=== PATIENT | female | born 1955 | race Caucasian/White ===

== ENCOUNTER 2017-08-03 07:07 | Day surgery (SDC) | payer MEDICAID ==
[2017-08-02 12:55] LABS: BASOPHILS # (AUTO) 0.1 X10'3 (0-0.2); BASOPHILS % (AUTO) 0.8 % (0-1); EOSINOPHILS # (AUTO) 0.2 X10'3 (0-0.9); EOSINOPHILS % (AUTO) 2.9 % (0-6); LYMPHOCYTES # (AUTO) 3.3 X10'3 (1.1-4.8); LYMPHOCYTES % (AUTO) 38.4 % (21-51); MEAN CORPUSCULAR HEMOGLOBIN 24.7 PG (27.0-31.0); MEAN CORPUSCULAR HGB CONC 31.6 % (33.0-36.5); MEAN CORPUSCULAR VOLUME 78.3 FL (78-98); MEAN PLATELET VOLUME 8.2 FL (7.4-10.4); MONOCYTES # (AUTO) 0.7 X10'3 (0-0.9); MONOCYTES % (AUTO) 8.2 % (2-12); NEUTROPHILS # (AUTO) 4.2 X10'3 (1.8-7.7); NEUTROPHILS % (AUTO) 49.7 % (42-75); PRE OP HEMATOCRIT 34.5 % (35.0-45.0); PRE OP PLATELET COUNT 457 X10'3 (140-440); RED CELL DISTRIBUTION WIDTH 17.5 % (11.5-14.5)
[2017-08-02 13:11] LABS: ALBUMIN 3.4 G/DL (3.4-5.0); BLOOD UREA NITROGEN 17 MG/DL (7-18); BUN/CREATININE RATIO 16.8 (6.6-38.0); CALCIUM 9.2 MG/DL (8.5-10.1); CHLORIDE 101 MMOL/L (99-107); CREATININE 1.01 MG/DL (0.40-0.90); PRE OP ANION GAP 9 (8-16); PRE OP GLUCOSE 83 MG/DL (70-104); PRE OP POTASSIUM 4.7 MMOL/L (3.4-5.1); PRE OP SODIUM 139 MMOL/L (135-145); TOTAL CARBON DIOXIDE 28.9 MMOL/L (24-32); eGFR 56 ML/MIN
[2017-08-02 13:14] LABS: PRE OP PROTIME 10.5 SECONDS (9.0-12.0)
[2017-08-02 13:45] LABS: PRE OP HEMOGLOBIN 10.9 g/dL (12.0-16.0)
[~2017-08-03] VITALS: Ht 176.5 cm; Wt 102.5 kg
[2017-08-03] VITALS (26 sets, daily range): BP systolic 99–164; BP diastolic 41–80
[~2017-08-03 07:07] MED LIST: CLON-528 PO; CYCL-1 PO; DOXE50CA4 PO; INSU100V36 SQ; LANTUS SQ; Non-Formulary PO; OMEP-84 PO; TRAZ150T78 PO; VENL150C2 PO; ZIPR80CA2 PO
[2017-08-03] MEDS ORDERED: LORazepam 0.5 MG tablet PO PRN (07:30)
[2017-08-03] MEDS ORDERED: diphenhydrAMINE 25mg capsule PO PRN (07:30)
[2017-08-03] MEDS ORDERED: fentaNYL/PF 50MCG/1 ML 2ML syringe ONE (08:19)
[2017-08-03] MEDS ORDERED: nitroGLYCERIN-Tridil 50MG/D5W 250 ML IV ONE (08:19)
[2017-08-03] MEDS ORDERED: midazolam 2 mg/2 ml injection ONE (08:19)
[2017-08-03] MEDS ORDERED: iohexol 350 MG/ML 50ML vial IV ONE (08:19)
[2017-08-03] MEDS ORDERED: LIDOcaine 1%/PF (10mg/ml) 5ml vial ONE ×2 (08:19→08:51)
[2017-08-03] MEDS ORDERED: heparin 1,000unit/ml 10ml vial 10 ML ONE ×2 (08:19→10:38)
[2017-08-03] MEDS ORDERED: iohexol 350MG/ML 100ml bottle IV ONE ×3 (08:19→09:59)
[2017-08-03] MEDS ORDERED: SIMV40TA4 PO (08:29)
[2017-08-03] MEDS ORDERED: INSU100V12 SQ (08:29)
[2017-08-03] MEDS ORDERED: diphenhydrAMINE 50 mg/ml inj ONE (08:34)
[2017-08-03] MEDS ORDERED: HYDR-565 PO (08:36)
[2017-08-03] MEDS ORDERED: COU3T PO (08:36)
[2017-08-03] MEDS ORDERED: SERT25TA PO (08:37)
[2017-08-03] MEDS ORDERED: BACL10TA PO (08:37)
[2017-08-03] MEDS ORDERED: LAMO200T2 PO (08:37)
[2017-08-03] MEDS ORDERED: ZIPR40CA2 PO (08:37)
[2017-08-03] MEDS ORDERED: heparin 1,000 UNITS/NS 500ml 500 ML ONE (09:35)
[2017-08-03] MEDS ORDERED: clopidogrel 300mg tablet ONE (10:27)
[2017-08-03] MEDS ORDERED: cyclobenzaprine 10mg tablet PO PRN (11:55)
[2017-08-03] MEDS ORDERED: magnesium hydroxide 30ml (MOM) UD suspension PO PRN (11:55)
[2017-08-03] MEDS ORDERED: acetaminophen 325mg tablet PO PRN (11:55)
[2017-08-03] MEDS ORDERED: proCHLORperazine 10 MG/2 ml inj IV PRN (11:55)
[2017-08-03] MEDS: normal saline 1000ml 1,000 ML IV SCH ×2 (11:57→17:30)
[2017-08-03] MEDS ORDERED: morphine sulfate 8 MG/ML SYRINGE IV PRN (12:00)
[2017-08-03] MEDS: aspirin 81mg tab.chew PO SCH (12:08)
[2017-08-03] MEDS: morphine sulfate 8 MG/ML SYRINGE IV PRN ×3 (12:09→21:12)
[2017-08-03 12:15] LABS: ISTAT HGB ART 10.2 g/dl (12.0-16.0); ISTAT Hct ART 30 %PCV (35-48); ISTAT Hct MIX 29 %PCV (35-48); ISTAT O2 SATURATION ARTERIAL 93 % (95-98); ISTAT O2 SATURATION MIX VENOUS 64 % (60-80); ISTAT SOURCE ART; ISTAT SOURCE MIX
[2017-08-03] MEDS: HYDROcodone/acetaminophen 10/325mg tab PO PRN (15:15)
[2017-08-03] MEDS ORDERED: baclofen 10mg tablet PO PRN (18:10)
[2017-08-03] MEDS: famotidine 20mg tablet PO SCH (20:22)
[2017-08-03] MEDS: docusate sod 100mg capsule PO SCH (20:22)
[2017-08-03] MEDS ORDERED: atorvastatin 20mg tablet PO SCH (21:00)
[2017-08-03] MEDS ORDERED: lamoTRIgine 100mg tablet PO SCH (21:00)
[2017-08-03] MEDS ORDERED: sertraline 50mg tablet PO SCH (21:00)
[2017-08-03] MEDS ORDERED: ziprasidone 20mg capsule PO SCH (21:00)
[2017-08-03] MEDS ORDERED: traZODone 150mg tablet PO SCH (21:00)
[2017-08-03] MEDS ORDERED: ATOR-2 PO (21:19)
[2017-08-03] MEDS ORDERED: HYDROcodone/acetaminophen 10/325mg tab PO PRN (21:20)
[2017-08-03] MEDS ORDERED: baclofen 10mg tablet PO SCH (21:20)
[2017-08-03 22:00] LABS: PROTHROMBIN TIME 10.5 SECONDS (9.0-12.0)
[2017-08-04] MEDS: morphine sulfate 8 MG/ML SYRINGE IV PRN (01:39)
[2017-08-04 02:00] VITALS: BP 107/69
[2017-08-04] MEDS: HYDROcodone/acetaminophen 10/325mg tab PO PRN (05:36)
[2017-08-04 06:00] VITALS: BP 111/57
[2017-08-04 06:24] LABS: PROTHROMBIN TIME 10.8 SECONDS (9.0-12.0)
[2017-08-04] MEDS: docusate sod 100mg capsule PO SCH (07:44)
[2017-08-04] MEDS: famotidine 20mg tablet PO SCH (07:44)
[2017-08-04] MEDS: aspirin 81mg tab.chew PO SCH (07:44)
[2017-08-04] MEDS ORDERED: clopidogrel 75mg tablet PO SCH (08:00)
[2017-08-04] MEDS ORDERED: sertraline 50mg tablet PO SCH (08:00)
[2017-08-04] MEDS ORDERED: ziprasidone 20mg capsule PO SCH (08:00)
[2017-08-04] MEDS ORDERED: ASPI-1265 PO (08:14)
[2017-08-04] MEDS ORDERED: CLOP75TA35 PO (08:14)
[2017-08-04 11:30] VITALS: BP 119/56
[2017-08-04] MEDS ORDERED: atorvastatin 20mg tablet PO SCH (21:00)
[2017-08-04] MEDS ORDERED: Insulin Detemir pen SQ SCH (21:00)
[2017-08-04] MEDS ORDERED: warfarin 3mg tablet PO SCH (21:00)
[2017-08-04] MEDS ORDERED: traZODone 150mg tablet PO SCH (21:00)
[2017-08-04] MEDS ORDERED: WARFARIN 5 MG PO SCH (21:00)
== END 2017-08-04 12:15 | disposition home or self-care (01) ==
LOC: SSTAY O 07:07 → PCU 3S 17:41 → SSTAY O 08-04 12:15
PROVIDERS: ATTEND Internal Medicine Cardiovascular Disease
DX: I25.10 Atherosclerotic heart disease of native coronary artery without angina pectoris (principal); E11.9 Type 2 diabetes mellitus without complications; E66.9 Obesity, unspecified; E78.5 Hyperlipidemia, unspecified; F32.9 Major depressive disorder, single episode, unspecified; E03.9 Hypothyroidism, unspecified; I10 Essential (primary) hypertension; F17.210 Nicotine dependence, cigarettes, uncomplicated; J44.9 Chronic obstructive pulmonary disease, unspecified; I25.82 Chronic total occlusion of coronary artery; Z78.0 Asymptomatic menopausal state; Z79.01 Long term (current) use of anticoagulants; Z79.82 Long term (current) use of aspirin; Z86.711 Personal history of pulmonary embolism; Z86.718 Personal history of other venous thrombosis and embolism; Z95.5 Presence of coronary angioplasty implant and graft; Z90.710 Acquired absence of both cervix and uterus; Z68.32 Body mass index [BMI] 32.0-32.9, adult; Z88.6 Allergy status to analgesic agent; Z98.890 Other specified postprocedural states; Z90.49 Acquired absence of other specified parts of digestive tract; Z79.4 Long term (current) use of insulin
CPT/HCPCS: 36415; 80048; 82803; 82948; 85014; 85025; 85347; 85610; 85730; 93005; 93460; 99152; 99153; A6257; A6449; C1725; C1769; C1874; C9600; J1200; J1644; J2001; J2250; J2270; J3010; J3490; J7030; Q9967; 93458; A4620

== ENCOUNTER 2017-09-07 10:06 | Day surgery (SDC) | payer MEDICAID ==
[2017-09-06 12:48] LABS: BASOPHILS # (AUTO) 0.1 X10'3 (0-0.2); BASOPHILS % (AUTO) 0.6 % (0-1); EOSINOPHILS # (AUTO) 0.3 X10'3 (0-0.9); EOSINOPHILS % (AUTO) 3.5 % (0-6); HEMATOCRIT 34.1 % (35.0-45.0); HEMOGLOBIN 11.1 g/dl (12.0-16.0); MEAN CORPUSCULAR HEMOGLOBIN 24.5 PG (27.0-31.0); MEAN CORPUSCULAR HGB CONC 32.5 % (33.0-36.5); MEAN CORPUSCULAR VOLUME 75.2 FL (78-98); MEAN PLATELET VOLUME 8.6 FL (7.4-10.4); MONOCYTES # (AUTO) 0.8 X10'3 (0-0.9); MONOCYTES % (AUTO) 8.4 % (2-12); NEUTROPHILS # (AUTO) 5.1 X10'3 (1.8-7.7); NEUTROPHILS % (AUTO) 55.5 % (42-75); PLATELET COUNT 543 X10'3 (140-440); RED BLOOD COUNT 4.54 X10'6 (4.20-5.60); RED CELL DISTRIBUTION WIDTH 17.6 % (11.5-14.5); WHITE BLOOD COUNT 9.3 X10'3 (4.5-11.0)
[2017-09-06 13:05] LABS: ALBUMIN 3.5 G/DL (3.4-5.0); ANION GAP 7 (8-16); BLOOD UREA NITROGEN 20 MG/DL (7-18); CALCIUM 8.9 MG/DL (8.5-10.1); CHLORIDE 103 MMOL/L (99-107); GLUCOSE 114 MG/DL (70-104); PARTIAL THROMBOPLASTIN TIME 23 SECONDS (22-32); PROTHROMBIN TIME 10.3 SECONDS (9.0-12.0); SODIUM 139 MMOL/L (135-145); TOTAL CARBON DIOXIDE 28.9 MMOL/L (24-32); eGFR 56 ML/MIN
[2017-09-06 13:11] LABS: POTASSIUM 4.1 MMOL/L (3.5-5.1)
[2017-09-07] VITALS (12 sets, daily range): BP systolic 100–178; BP diastolic 51–84
[~2017-09-07] VITALS: Ht 176.5 cm; Wt 100.7 kg
[~2017-09-07 10:06] MED LIST changes: +ASPI-1265 PO; +ATOR-2 PO; +BACL10TA PO; -CLON-528 PO; +CLOP75TA35 PO; +COU3T PO; -CYCL-1 PO; -DOXE50CA4 PO; +HYDR-565 PO; +INSU100V12 SQ; +LAMO200T2 PO; -LANTUS SQ; -Non-Formulary PO; -OMEP-84 PO; +SERT25TA PO; -VENL150C2 PO; +ZIPR40CA2 PO
[2017-09-07] MEDS ORDERED: normal saline 1000ml 1,000 ML IV SCH (10:25)
[2017-09-07] MEDS ORDERED: LORazepam 0.5 MG tablet PO PRN (10:25)
[2017-09-07] MEDS ORDERED: diphenhydrAMINE 25mg capsule PO PRN (10:25)
[2017-09-07] MEDS ORDERED: LIDOcaine 1% (10mg/ml) 2ml vial ONE (10:35)
[2017-09-07] MEDS ORDERED: CLOP75TA15 PO (10:38)
[2017-09-07] MEDS ORDERED: ASPI81TA52 PO (10:39)
[2017-09-07] MEDS ORDERED: SIMV20TA5 PO (10:46)
[2017-09-07] MEDS ORDERED: DOXE50CA4 PO (10:52)
[2017-09-07] MEDS ORDERED: BUSP10TA11 PO (10:52)
[2017-09-07] MEDS ORDERED: PANT-47 PO (10:57)
[2017-09-07] MEDS ORDERED: VENL150T3 PO (10:57)
[2017-09-07] MEDS ORDERED: FENO160T30 PO (10:57)
[2017-09-07] MEDS ORDERED: iohexol 350MG/ML 100ml bottle IV ONE ×2 (13:33→14:46)
[2017-09-07] MEDS ORDERED: heparin 1,000unit/ml 10ml vial 10 ML ONE (13:33)
[2017-09-07] MEDS ORDERED: iohexol 350 MG/ML 50ML vial IV ONE (13:33)
[2017-09-07] MEDS ORDERED: LIDOcaine 1%/PF (10mg/ml) 5ml vial ONE ×2 (13:33→14:27)
[2017-09-07] MEDS ORDERED: midazolam 2 mg/2 ml injection ONE ×2 (13:33→14:31)
[2017-09-07] MEDS ORDERED: nitroGLYCERIN-Tridil 50MG/D5W 250 ML IV ONE (13:33)
[2017-09-07] MEDS ORDERED: fentaNYL/PF 50MCG/1 ML 2ML syringe ONE (13:33)
[2017-09-07] MEDS ORDERED: HYDROcodone/acetaminophen 10/325mg tab PO PRN (18:15)
== END 2017-09-07 20:15 | disposition home or self-care (01) ==
LOC: SSTAY O 10:06
PROVIDERS: ATTEND Internal Medicine Cardiovascular Disease
DX: I25.110 Atherosclerotic heart disease of native coronary artery with unstable angina pectoris (principal); E78.5 Hyperlipidemia, unspecified; I10 Essential (primary) hypertension; J44.9 Chronic obstructive pulmonary disease, unspecified; E11.9 Type 2 diabetes mellitus without complications; Z78.0 Asymptomatic menopausal state; Z87.891 Personal history of nicotine dependence; Z95.5 Presence of coronary angioplasty implant and graft; Z79.82 Long term (current) use of aspirin; Z79.4 Long term (current) use of insulin; Z88.6 Allergy status to analgesic agent; Z79.01 Long term (current) use of anticoagulants; Z90.710 Acquired absence of both cervix and uterus; Z98.890 Other specified postprocedural states
CPT/HCPCS: 36415; 80048; 82948; 85025; 85610; 85730; 93005; 93458; 99152; 99153; A6257; C1725; C1769; J1644; J2001; J2250; J3010; J3490; J7030; Q0163; Q9967; A4620

== ENCOUNTER 2018-01-11 12:58 | Inpatient (IN) | payer MEDICAID ==
[~2018-01-11] VITALS: Ht 176.5 cm; Wt 98.0 kg
[~2018-01-11 12:58] MED LIST changes: -ASPI-1265 PO; +ASPI81TA52 PO; -ATOR-2 PO; +BUSP10TA11 PO; +CLOP75TA15 PO; -CLOP75TA35 PO; -COU3T PO; +DOXE50CA4 PO; +FENO160T30 PO; +PANT-47 PO; -SERT25TA PO; +SIMV20TA5 PO; +VENL150T3 PO; -ZIPR40CA2 PO
[2018-01-11] MEDS ORDERED: levoFLOXACIN-Levaquin 750MG/D5 150 ML IV STA (13:26)
[2018-01-11] MEDS ORDERED: acetaminophen 325mg tablet PO ONE (13:30)
[2018-01-11] MEDS ORDERED: normal saline 1000ML IV soln IV ONE (13:30)
[2018-01-11 13:38] LABS: BASOPHILS % (AUTO) 0.1 % (0-1); EOSINOPHILS # (AUTO) 0.7 X10'3 (0-0.9); EOSINOPHILS % (AUTO) 3.5 % (0-6); HEMATOCRIT 24.2 % (35.0-45.0); HEMOGLOBIN 7.7 g/dl (12.0-16.0); LYMPHOCYTES # (AUTO) 2.5 X10'3 (1.1-4.8); LYMPHOCYTES % (AUTO) 11.9 % (21-51); MEAN CORPUSCULAR HEMOGLOBIN 21.8 PG (27.0-31.0); MEAN CORPUSCULAR HGB CONC 31.9 % (33.0-36.5); MEAN CORPUSCULAR VOLUME 68.2 FL (78-98); MEAN PLATELET VOLUME 7.7 FL (7.4-10.4); MONOCYTES # (AUTO) 1.9 X10'3 (0-0.9); NEUTROPHILS % (AUTO) 75.5 % (42-75); PLATELET COUNT 891 X10'3 (140-440); RED BLOOD COUNT 3.55 X10'6 (4.20-5.60); RED CELL DISTRIBUTION WIDTH 21.3 % (11.5-14.5); WHITE BLOOD COUNT 21.1 X10'3 (4.5-11.0)
[2018-01-11 13:49] LABS: INR 1.1 INR; PARTIAL THROMBOPLASTIN TIME 31 SECONDS (22-32); PROTHROMBIN TIME 11.7 SECONDS (9.0-12.0)
[2018-01-11 13:55] LABS: ALANINE AMINOTRANSFERASE 17 U/L (12-78); ALBUMIN 2.1 G/DL (3.4-5.0); ALBUMIN/GLOBULIN RATIO 0.4 (1.1-1.5); ALKALINE PHOSPHATASE 36 IU/L (46-116); ANION GAP 12 (8-16); ASPARTATE AMINO TRANSFERASE 30 U/L (10-37); BILIRUBIN,TOTAL 0.2 MG/DL (0.1-1.0); BLOOD UREA NITROGEN 30 MG/DL (7-18); BUN/CREATININE RATIO 25.2 (6.6-38.0); CALCIUM 9.1 MG/DL (8.5-10.1); CHLORIDE 102 MMOL/L (99-107); CREATININE 1.19 MG/DL (0.40-0.90); GLUCOSE 121 MG/DL (70-104); SODIUM 138 MMOL/L (135-145); TOTAL CARBON DIOXIDE 24.1 MMOL/L (24-32); TOTAL PROTEIN 7.8 G/DL (6.4-8.2); eGFR 46 ML/MIN
[2018-01-11 15:09] LABS: ANISOCYTOSIS 3+; PLATELET ESTIMATE INCREASED; POIKILOCYTOSIS 2+; TOTAL CELLS COUNTED 100
[2018-01-11 15:10] LABS: SMUDGE CELLS FEW
[2018-01-11 15:14] LABS: POLYCHROMASIA FEW
[2018-01-11 15:16] LABS: ELLIPTOCYTES FEW; HYPOCHROMASIA 1+; SCHISTOCYTES FEW; TARGET CELLS 3+
[2018-01-11 15:19] LABS: LARGE PLATELETS FEW; TOXIC GRANULATION 2+
[2018-01-11 16:14] LABS: CLARITY,URINE SLIGHTLY CLOUDY (Clear); COLOR,URINE YELLOW (Yellow); GLUCOSE, URINE NEGATIVE (Neg); KETONES,URINE NEGATIVE (Neg); LEUKOCYTE ESTERASE ,URINE NEGATIVE (Neg); NITRITES, URINE POSITIVE (Neg); OCCULT BLOOD,URINE NEGATIVE (Neg); PROTEIN,URINE NEGATIVE (Neg)
[2018-01-11 16:15] LABS: UA COLLECTION TYPE CLN CATCH MIDSTREAM
[2018-01-11 16:19] LABS: BACTERIA,URINE 2+ /HPF (Neg); HYALINE CASTS 0-3 /LPF (NEGATIVE); SQUAMOUS EPITHELIAL CELL,UR MANY /LPF (FEW)
[2018-01-11 16:20] LABS: RBC,URINE 0-2 /HPF (0-2); WBC,URINE 0-4 /HPF (0-4)
[2018-01-11] MEDS ORDERED: mag hydrox/Alum hydrox/simeth 30ml oral suspension PO PRN (17:30)
[2018-01-11] MEDS ORDERED: acetaminophen 325mg tablet PO PRN ×2 (17:30)
[2018-01-11] MEDS ORDERED: ipratropium/albuterol 3ml nebule NEB PRN (17:30)
[2018-01-11] MEDS ORDERED: magnesium hydroxide 30ml (MOM) UD suspension PO PRN (17:30)
[2018-01-11] MEDS ORDERED: ondansetron/PF 4mg/2ml inj IV PRN (17:30)
[2018-01-11] MEDS ORDERED: acetaminophen 650mg rectal suppository RC PRN (17:30)
[2018-01-11] MEDS ORDERED: HYDROcodone/acetaminophen 5mg/325mg tablet PO PRN (17:30)
[2018-01-11] MEDS ORDERED: insulin regular, human vial - multi-dose SQ SCH (18:15)
[2018-01-11] MEDS ORDERED: dextrose ORAL solution 15 GM/59 ML bottle PO PRN ×2 (18:15)
[2018-01-11] MEDS ORDERED: glucagon, human recombinant 1mg kit SUBCUT PRN (18:15)
[2018-01-11] MEDS ORDERED: dextrose 50%-water 50ml dispensing syringe IV PRN ×2 (18:15)
[2018-01-11] MEDS ORDERED: MESSAGE TO PHARMACY PO ONE (18:15)
[2018-01-11] MEDS: HYDROcodone/acetaminophen 10/325mg tab PO PRN ×2 (18:33→23:55)
[2018-01-11 18:54] LABS: HEMOGLOBIN A1C 7.8 % (4.5-6.2)
[2018-01-11] MEDS: baclofen 10mg tablet PO PRN (19:00)
[2018-01-11] MEDS: sodium chloride 0.45% 1,000 ML IV SCH (19:10)
[2018-01-11] MEDS: ziprasidone 20mg capsule PO SCH (20:43)
[2018-01-11] MEDS: busPIRone 5mg tablet PO SCH (20:43)
[2018-01-11] MEDS: lamoTRIgine 100mg tablet PO SCH (20:43)
[2018-01-11] MEDS: rivaroxaban 15mg tablet PO SCH (20:43)
[2018-01-11] MEDS: pantoprazole 40mg Tablet.DR PO SCH (20:43)
[2018-01-11] MEDS: doxepin 25mg capsule PO SCH (21:00)
[2018-01-11 22:15] VITALS: BP 126/55
[2018-01-11] MEDS: traZODone 150mg tablet PO SCH (22:28)
[2018-01-11] MEDS: insulin glargine (Lantus) pen - multi-dose SQ SCH (22:33)
[2018-01-11] MEDS: methylPREDNISolone sod succ 125mg/2ml vial IV SCH (23:56)
[2018-01-12 05:29] LABS: HEMATOCRIT 22.5 % (35.0-45.0); HEMOGLOBIN 7.1 g/dl (12.0-16.0); MEAN CORPUSCULAR HEMOGLOBIN 21.7 PG (27.0-31.0); MEAN CORPUSCULAR HGB CONC 31.6 % (33.0-36.5); MEAN CORPUSCULAR VOLUME 68.7 FL (78-98); MEAN PLATELET VOLUME 8.1 FL (7.4-10.4); PLATELET COUNT 794 X10'3 (140-440); RED BLOOD COUNT 3.28 X10'6 (4.20-5.60); RED CELL DISTRIBUTION WIDTH 21.2 % (11.5-14.5); WHITE BLOOD COUNT 15.9 X10'3 (4.5-11.0)
[2018-01-12 05:41] LABS: ALBUMIN 1.8 G/DL (3.4-5.0); ANION GAP 8 (8-16); BLOOD UREA NITROGEN 22 MG/DL (7-18); BUN/CREATININE RATIO 21.8 (6.6-38.0); CHLORIDE 103 MMOL/L (99-107); CREATININE 1.01 MG/DL (0.40-0.90); GLUCOSE 256 MG/DL (70-104); POTASSIUM 4.8 MMOL/L (3.5-5.1); SODIUM 135 MMOL/L (135-145); TOTAL CARBON DIOXIDE 23.8 MMOL/L (24-32); TROPONIN I < 0.04 NG/ML (0.0-0.05); eGFR 55 ML/MIN
[2018-01-12] MEDS: sodium chloride 0.45% 1,000 ML IV SCH ×3 (05:46→23:23)
[2018-01-12 06:25] LABS: BASOPHILS % (MANUAL) 1 % (0-1); LYMPHOCYTES % (MANUAL) 5 % (21-51); NEUTROPHILS % (MANUAL) 93 % (42-75); TOTAL CELLS COUNTED 100
[2018-01-12 06:26] LABS: ANISOCYTOSIS 3+; HYPOCHROMASIA 1+; MICROCYTOSIS 2+; PLATELET ESTIMATE INCREASED; TARGET CELLS 2+
[2018-01-12 06:27] LABS: ELLIPTOCYTES 1+; POIKILOCYTOSIS 2+; TOXIC GRANULATION 2+
[2018-01-12 07:30] VITALS: BP 113/47
[2018-01-12] MEDS ORDERED: levoFLOXACIN-Levaquin 750MG/D5 150 ML IV SCH (08:00)
[2018-01-12] MEDS ORDERED: insulin glargine (Lantus) pen - multi-dose SQ SCH (08:00)
[2018-01-12 09:57] LABS: RED BLOOD COUNT 3.32 X10'6 (4.20-5.60); RETICULOCYTE % (AUTO) 2.4 % (0.5-1.5)
[2018-01-12] MEDS: methylPREDNISolone sod succ 125mg/2ml vial IV SCH ×3 (10:07→23:31)
[2018-01-12] MEDS: pantoprazole 40mg Tablet.DR PO SCH ×2 (10:07→19:21)
[2018-01-12] MEDS: busPIRone 5mg tablet PO SCH ×2 (10:08→19:20)
[2018-01-12] MEDS: lamoTRIgine 100mg tablet PO SCH ×2 (10:08→19:18)
[2018-01-12] MEDS: ziprasidone 20mg capsule PO SCH ×2 (10:08→19:16)
[2018-01-12] MEDS: clopidogrel 75mg tablet PO SCH (10:08)
[2018-01-12] MEDS: aspirin 81mg tablet.DR PO SCH (10:08)
[2018-01-12] MEDS: venlafaxine XR 75mg capsule (Q24H) PO SCH (10:09)
[2018-01-12] MEDS: rivaroxaban 15mg tablet PO SCH ×2 (10:09→19:20)
[2018-01-12 10:17] LABS: % IRON SATURATION 3 % (11-46); IRON 10 UG/DL (49-151); TOTAL IRON BINDING CAPACITY 293 UG/DL (259-388)
[2018-01-12] MEDS: HYDROcodone/acetaminophen 10/325mg tab PO PRN ×3 (10:24→19:16)
[2018-01-12] MEDS: baclofen 10mg tablet PO PRN ×2 (10:24→19:22)
[2018-01-12 10:58] VITALS: BP 129/52
[2018-01-12] MEDS: insulin Lispro (HumaLOG) vial - multi-dose SQ SCH ×3 (13:17→21:19)
[2018-01-12] MEDS: CefTRIAXone/D5W-Rocephin 1gm 50 ML IV SCH (16:59)
[2018-01-12] MEDS: azithromycin/NS 500mg/250ml 250 ML IV SCH (17:56)
[2018-01-12] MEDS: lactobacillus rhamnosus 10,000 MMU CELLS/CAPSULE PO SCH (19:16)
[2018-01-12 20:00] VITALS: BP 130/53
[2018-01-12] MEDS: doxepin 25mg capsule PO SCH (20:50)
[2018-01-12] MEDS: traZODone 150mg tablet PO SCH (20:52)
[2018-01-12] MEDS: insulin glargine (Lantus) pen - multi-dose SQ SCH (21:18)
[2018-01-13] VITALS (13 sets, daily range): BP systolic 108–144; BP diastolic 49–78
[2018-01-13] MEDS: HYDROcodone/acetaminophen 10/325mg tab PO PRN ×3 (01:30→20:31)
[2018-01-13 05:35] LABS: ALBUMIN 1.8 G/DL (3.4-5.0); ANION GAP 7 (8-16); BLOOD UREA NITROGEN 23 MG/DL (7-18); BUN/CREATININE RATIO 23.5 (6.6-38.0); CHLORIDE 102 MMOL/L (99-107); CREATININE 0.98 MG/DL (0.40-0.90); GLUCOSE 310 MG/DL (70-104); POTASSIUM 4.8 MMOL/L (3.5-5.1); SODIUM 136 MMOL/L (135-145); TOTAL CARBON DIOXIDE 26.9 MMOL/L (24-32); eGFR 57 ML/MIN
[2018-01-13 05:42] LABS: BASOPHILS % (AUTO) 0 % (0-1); EOSINOPHILS % (AUTO) 0.2 % (0-6); LYMPHOCYTES # (AUTO) 1.1 X10'3 (1.1-4.8); LYMPHOCYTES % (AUTO) 6.6 % (21-51); MEAN CORPUSCULAR HEMOGLOBIN 21.5 PG (27.0-31.0); MEAN CORPUSCULAR HGB CONC 31.5 % (33.0-36.5); MEAN CORPUSCULAR VOLUME 68.4 FL (78-98); MONOCYTES # (AUTO) 0.4 X10'3 (0-0.9); MONOCYTES % (AUTO) 2.2 % (2-12); NEUTROPHILS # (AUTO) 14.8 X10'3 (1.8-7.7); PLATELET COUNT 840 X10'3 (140-440); RED BLOOD COUNT 3.11 X10'6 (4.20-5.60); RED CELL DISTRIBUTION WIDTH 21.7 % (11.5-14.5); WHITE BLOOD COUNT 16.3 X10'3 (4.5-11.0)
[2018-01-13 05:45] LABS: HEMATOCRIT 21.3 % (35.0-45.0); HEMOGLOBIN 6.7 g/dl (12.0-16.0)
[2018-01-13 07:39] LABS: ANISOCYTOSIS 3+; HYPOCHROMASIA 1+; LARGE PLATELETS FEW; MICROCYTOSIS 2+; PLATELET ESTIMATE INCREASED; POIKILOCYTOSIS FEW; POLYCHROMASIA 1+
[2018-01-13 07:40] LABS: TARGET CELLS 1+
[2018-01-13] MEDS: clopidogrel 75mg tablet PO SCH ×2 (08:00→10:34)
[2018-01-13] MEDS ORDERED: insulin glargine (Lantus) pen - multi-dose SQ SCH (08:00)
[2018-01-13] MEDS: rivaroxaban 15mg tablet PO SCH ×2 (08:00→10:32)
[2018-01-13] MEDS: baclofen 10mg tablet PO PRN ×2 (08:39→20:31)
[2018-01-13] MEDS: insulin Lispro (HumaLOG) vial - multi-dose SQ SCH ×2 (10:29→14:09)
[2018-01-13] MEDS: methylPREDNISolone sod succ 125mg/2ml vial IV SCH ×2 (10:32→19:55)
[2018-01-13] MEDS: CefTRIAXone/D5W-Rocephin 1gm 50 ML IV SCH (10:32)
[2018-01-13] MEDS: pantoprazole 40mg Tablet.DR PO SCH ×2 (10:33→19:06)
[2018-01-13] MEDS: aspirin 81mg tablet.DR PO SCH (10:34)
[2018-01-13] MEDS: ziprasidone 20mg capsule PO SCH ×2 (10:34→19:06)
[2018-01-13] MEDS: venlafaxine XR 75mg capsule (Q24H) PO SCH (10:36)
[2018-01-13] MEDS: lactobacillus rhamnosus 10,000 MMU CELLS/CAPSULE PO SCH ×2 (10:37→19:06)
[2018-01-13] MEDS: busPIRone 5mg tablet PO SCH ×2 (10:38→19:06)
[2018-01-13] MEDS: lamoTRIgine 100mg tablet PO SCH ×2 (10:38→19:06)
[2018-01-13] MEDS ORDERED: TEMA30CA PO (10:49)
[2018-01-13] MEDS ORDERED: ISOS60TA4 PO (10:52)
[2018-01-13] MEDS: piperacillin/tazo 3.375gm/50ml 50 ML IV SCH ×4 (11:05→19:56)
[2018-01-13] MEDS: vancomycin/NS 1 GM ADD-VANTAGE 250 ML IV SCH ×2 (11:10→14:37)
[2018-01-13 12:18] LABS: IRON 19 UG/DL (49-151); TOTAL IRON BINDING CAPACITY 312 UG/DL (259-388)
[2018-01-13 12:19] LABS: % IRON SATURATION 6 % (11-46)
[2018-01-13 12:51] LABS: FERRITIN 79 NG/ML (8-252)
[2018-01-13] MEDS: azithromycin/NS 500mg/250ml 250 ML IV SCH (12:53)
[2018-01-13 13:20] LABS: OCCULT BLOOD STOOL NEGATIVE (Neg)
[2018-01-13] MEDS: traZODone 150mg tablet PO SCH (20:31)
[2018-01-13] MEDS: doxepin 25mg capsule PO SCH (20:31)
[2018-01-13] MEDS: insulin glargine (Lantus) pen - multi-dose SQ SCH (21:07)
[2018-01-14 00:12] VITALS: BP 152/78
[2018-01-14 00:49] VITALS: BP 139/76
[2018-01-14] MEDS: vancomycin inj 1,250 MG in normal saline 250ml IV soln 250 ML IV SCH ×2 (00:57→12:30)
[2018-01-14] MEDS: piperacillin/tazo 3.375gm/50ml 50 ML IV SCH ×4 (03:00→19:08)
[2018-01-14 04:45] VITALS: BP 229/113
[2018-01-14] MEDS: HYDROcodone/acetaminophen 10/325mg tab PO PRN ×3 (04:51→19:09)
[2018-01-14] MEDS: baclofen 10mg tablet PO PRN ×3 (04:51→19:10)
[2018-01-14 05:49] LABS: BASOPHILS % (AUTO) 0 % (0-1); EOSINOPHILS # (AUTO) 0.2 X10'3 (0-0.9); EOSINOPHILS % (AUTO) 1.1 % (0-6); HEMATOCRIT 28.6 % (35.0-45.0); HEMOGLOBIN 9.3 g/dl (12.0-16.0); LYMPHOCYTES % (AUTO) 10.5 % (21-51); MEAN CORPUSCULAR HEMOGLOBIN 23.6 PG (27.0-31.0); MEAN CORPUSCULAR HGB CONC 32.4 % (33.0-36.5); MEAN CORPUSCULAR VOLUME 72.8 FL (78-98); MEAN PLATELET VOLUME 8.3 FL (7.4-10.4); MONOCYTES # (AUTO) 0.8 X10'3 (0-0.9); MONOCYTES % (AUTO) 4.3 % (2-12); NEUTROPHILS # (AUTO) 15.6 X10'3 (1.8-7.7); NEUTROPHILS % (AUTO) 84.1 % (42-75); PLATELET COUNT 855 X10'3 (140-440); RED BLOOD COUNT 3.93 X10'6 (4.20-5.60); RED CELL DISTRIBUTION WIDTH 23.2 % (11.5-14.5); WHITE BLOOD COUNT 18.5 X10'3 (4.5-11.0)
[2018-01-14 07:16] LABS: ANION GAP 9 (8-16); BLOOD UREA NITROGEN 21 MG/DL (7-18); BUN/CREATININE RATIO 23.1 (6.6-38.0); CALCIUM 8.4 MG/DL (8.5-10.1); CHLORIDE 106 MMOL/L (99-107); CREATININE 0.91 MG/DL (0.40-0.90); GLUCOSE 238 MG/DL (70-104); POTASSIUM 4.2 MMOL/L (3.5-5.1); SODIUM 140 MMOL/L (135-145); TOTAL CARBON DIOXIDE 24.8 MMOL/L (24-32); eGFR 62 ML/MIN
[2018-01-14 07:31] VITALS: BP 145/75
[2018-01-14] MEDS: azithromycin/NS 500mg/250ml 250 ML IV SCH (07:45)
[2018-01-14] MEDS: insulin Lispro (HumaLOG) vial - multi-dose SQ SCH ×4 (08:55→21:40)
[2018-01-14] MEDS: ziprasidone 20mg capsule PO SCH ×2 (08:58→19:09)
[2018-01-14] MEDS: venlafaxine XR 75mg capsule (Q24H) PO SCH (08:59)
[2018-01-14] MEDS: lactobacillus rhamnosus 10,000 MMU CELLS/CAPSULE PO SCH ×2 (09:00→19:08)
[2018-01-14] MEDS: lamoTRIgine 100mg tablet PO SCH ×2 (09:00→19:09)
[2018-01-14] MEDS: pantoprazole 40mg Tablet.DR PO SCH ×2 (09:01→19:08)
[2018-01-14] MEDS: aspirin 81mg tablet.DR PO SCH (09:01)
[2018-01-14] MEDS: busPIRone 5mg tablet PO SCH ×2 (09:01→19:08)
[2018-01-14] MEDS: methylPREDNISolone sod succ 125mg/2ml vial IV SCH ×2 (09:03→19:10)
[2018-01-14 11:00] VITALS: BP 147/80
[2018-01-14] MEDS: ascorbic acid 500mg tablet PO SCH (17:42)
[2018-01-14 18:00] VITALS: BP 154/63
[2018-01-14] MEDS: ferrous sulfate 325mg tablet PO SCH (19:18)
[2018-01-14] MEDS: insulin glargine (Lantus) pen - multi-dose SQ SCH (21:41)
[2018-01-14] MEDS: traZODone 150mg tablet PO SCH (21:45)
[2018-01-14] MEDS: doxepin 25mg capsule PO SCH (21:45)
[2018-01-15 00:24] VITALS: BP 139/57
[2018-01-15] MEDS: piperacillin/tazo 3.375gm/50ml 50 ML IV SCH ×2 (01:47→08:37)
[2018-01-15] MEDS: vancomycin inj 1,250 MG in normal saline 250ml IV soln 250 ML IV SCH (02:28)
[2018-01-15] MEDS: baclofen 10mg tablet PO PRN (03:04)
[2018-01-15] MEDS: HYDROcodone/acetaminophen 10/325mg tab PO PRN ×2 (03:04→11:02)
[2018-01-15 04:38] LABS: BASOPHILS % (AUTO) 0.3 % (0-1); EOSINOPHILS # (AUTO) 0.2 X10'3 (0-0.9); EOSINOPHILS % (AUTO) 1.2 % (0-6); HEMOGLOBIN 9.7 g/dl (12.0-16.0); LYMPHOCYTES # (AUTO) 1.7 X10'3 (1.1-4.8); LYMPHOCYTES % (AUTO) 12.4 % (21-51); MEAN CORPUSCULAR HEMOGLOBIN 23.3 PG (27.0-31.0); MEAN CORPUSCULAR HGB CONC 32.4 % (33.0-36.5); MEAN CORPUSCULAR VOLUME 71.9 FL (78-98); MEAN PLATELET VOLUME 7.8 FL (7.4-10.4); MONOCYTES # (AUTO) 0.7 X10'3 (0-0.9); MONOCYTES % (AUTO) 5.1 % (2-12); PLATELET COUNT 857 X10'3 (140-440); RED BLOOD COUNT 4.18 X10'6 (4.20-5.60); RED CELL DISTRIBUTION WIDTH 22.9 % (11.5-14.5); WHITE BLOOD COUNT 13.6 X10'3 (4.5-11.0)
[2018-01-15 04:49] LABS: ANION GAP 6 (8-16); BLOOD UREA NITROGEN 20 MG/DL (7-18); BUN/CREATININE RATIO 21.5 (6.6-38.0); CALCIUM 8.5 MG/DL (8.5-10.1); CHLORIDE 104 MMOL/L (99-107); CREATININE 0.93 MG/DL (0.40-0.90); GLUCOSE 219 MG/DL (70-104); POTASSIUM 3.8 MMOL/L (3.5-5.1); SODIUM 140 MMOL/L (135-145); TOTAL CARBON DIOXIDE 29.8 MMOL/L (24-32); eGFR 61 ML/MIN
[2018-01-15 07:41] VITALS: BP 146/62
[2018-01-15] MEDS ORDERED: clopidogrel 75mg tablet PO SCH (08:00)
[2018-01-15] MEDS: lactobacillus rhamnosus 10,000 MMU CELLS/CAPSULE PO SCH (08:37)
[2018-01-15] MEDS: methylPREDNISolone sod succ 125mg/2ml vial IV SCH (08:37)
[2018-01-15] MEDS: busPIRone 5mg tablet PO SCH (08:37)
[2018-01-15] MEDS: ferrous sulfate 325mg tablet PO SCH (08:38)
[2018-01-15] MEDS: aspirin 81mg tablet.DR PO SCH (08:38)
[2018-01-15] MEDS: venlafaxine XR 75mg capsule (Q24H) PO SCH (08:38)
[2018-01-15] MEDS: lamoTRIgine 100mg tablet PO SCH (08:39)
[2018-01-15] MEDS: pantoprazole 40mg Tablet.DR PO SCH (08:39)
[2018-01-15] MEDS: ziprasidone 20mg capsule PO SCH (08:39)
[2018-01-15] MEDS: ascorbic acid 500mg tablet PO SCH (08:40)
[2018-01-15] MEDS: insulin Lispro (HumaLOG) vial - multi-dose SQ SCH (08:54)
[2018-01-15] MEDS: azithromycin/NS 500mg/250ml 250 ML IV SCH (10:59)
[2018-01-15 11:30] VITALS: BP 152/74
[2018-01-15] MEDS ORDERED: FER325T PO (12:04)
[2018-01-15] MEDS ORDERED: AZIT500T5 PO (12:04)
[2018-01-15] MEDS ORDERED: VANCOMYCIN LEVEL IV NR (12:30)
== END 2018-01-15 14:40 | disposition home or self-care (01) | DRG 139 ==
LOC: ER 12:59 → ED HOLD 17:29 → SUR 3N 21:55
PROVIDERS: ADMIT Family Medicine; ATTEND Family Medicine
PROC: 30233N1 Transfusion of Nonautologous Red Blood Cells into Peripheral Vein, Percutaneous Approach (ICD-10-PCS; principal; 2018-01-13)
DX: J18.1 Lobar pneumonia, unspecified organism (principal); L89.150 Pressure ulcer of sacral region, unstageable; Z99.81 Dependence on supplemental oxygen; E46 Unspecified protein-calorie malnutrition; J44.0 Chronic obstructive pulmonary disease with (acute) lower respiratory infection; D50.9 Iron deficiency anemia, unspecified; E11.9 Type 2 diabetes mellitus without complications; F32.9 Major depressive disorder, single episode, unspecified; F41.9 Anxiety disorder, unspecified; F17.210 Nicotine dependence, cigarettes, uncomplicated; I25.10 Atherosclerotic heart disease of native coronary artery without angina pectoris; J44.1 Chronic obstructive pulmonary disease with (acute) exacerbation; R59.0 Localized enlarged lymph nodes; Z79.4 Long term (current) use of insulin; Z79.02 Long term (current) use of antithrombotics/antiplatelets; Z80.1 Family history of malignant neoplasm of trachea, bronchus and lung; Z80.7 Family history of other malignant neoplasms of lymphoid, hematopoietic and related tissues; Z80.8 Family history of malignant neoplasm of other organs or systems; Z83.3 Family history of diabetes mellitus; Z85.028 Personal history of other malignant neoplasm of stomach; Z79.01 Long term (current) use of anticoagulants; Z86.711 Personal history of pulmonary embolism; Z86.718 Personal history of other venous thrombosis and embolism; Z90.710 Acquired absence of both cervix and uterus; Z92.21 Personal history of antineoplastic chemotherapy; Z92.3 Personal history of irradiation; Z95.5 Presence of coronary angioplasty implant and graft; Z68.31 Body mass index [BMI] 31.0-31.9, adult; Z88.5 Allergy status to narcotic agent; Z79.899 Other long term (current) drug therapy; Z79.82 Long term (current) use of aspirin; Z85.01 Personal history of malignant neoplasm of esophagus
CPT/HCPCS: 36415; 71045; 71250; 80048; 80053; 81001; 82272; 82607; 82728; 82746; 82948; 83036; 83540; 83550; 83605; 84145; 84484; 85025; 85045; 85610; 85730; 86885; 86900; 86901; 86920; 87040; 87070; 93005; 94760; A6212; A6213; A6449; J0456; J0696; J1815; J1956; J2543; J2930; J3370; J7030; P9016

== ENCOUNTER 2018-03-07 10:25 | Inpatient (IN) | payer MEDICAID ==
[~2018-03-07] VITALS: Ht 175.3 cm; Wt 95.1 kg
[~2018-03-07 10:25] MED LIST changes: +AZIT500T5 PO; -DOXE50CA4 PO; +FER325T PO; +ISOS60TA4 PO; +TEMA30CA PO
[2018-03-07] MEDS ORDERED: methylPREDNISolone sod succ 125mg/2ml vial IV ONE (10:40)
[2018-03-07] MEDS ORDERED: normal saline 1000ML IV soln IVB ONE ×2 (10:40→12:25)
[2018-03-07 10:59] LABS: HEMATOCRIT 34.3 % (35.0-45.0); HEMOGLOBIN 11.3 g/dl (12.0-16.0); MEAN CORPUSCULAR HEMOGLOBIN 24.5 PG (27.0-31.0); MEAN CORPUSCULAR HGB CONC 32.9 % (33.0-36.5); MEAN CORPUSCULAR VOLUME 74.4 FL (78-98); MEAN PLATELET VOLUME 8.7 FL (7.4-10.4); PLATELET COUNT 476 X10'3 (140-440); RED BLOOD COUNT 4.61 X10'6 (4.20-5.60); RED CELL DISTRIBUTION WIDTH 23.3 % (11.5-14.5); WHITE BLOOD COUNT 21.9 X10'3 (4.5-11.0)
[2018-03-07 11:12] LABS: PLATELET ESTIMATE INCREASED; TOTAL CELLS COUNTED 100
[2018-03-07 11:13] LABS: ANISOCYTOSIS 3+; MICROCYTOSIS 1+
[2018-03-07 11:14] LABS: HYPOCHROMASIA 1+; POLYCHROMASIA 1+
[2018-03-07 11:15] LABS: LARGE PLATELETS FEW; TARGET CELLS 1+
[2018-03-07 11:18] LABS: D-DIMER 5.75 MG/L FEU (0-0.50)
[2018-03-07 11:22] LABS: ALANINE AMINOTRANSFERASE 134 U/L (12-78); ALBUMIN 2.4 G/DL (3.4-5.0); ALKALINE PHOSPHATASE 331 IU/L (46-116); ANION GAP 9 (8-16); ASPARTATE AMINO TRANSFERASE 176 U/L (10-37); BILIRUBIN,TOTAL 4.4 MG/DL (0.1-1.0); BLOOD UREA NITROGEN 40 MG/DL (7-18); BUN/CREATININE RATIO 27.4 (6.6-38.0); CHLORIDE 94 MMOL/L (99-107); CREATININE 1.46 MG/DL (0.40-0.90); GLUCOSE 134 MG/DL (70-104); SODIUM 129 MMOL/L (135-145); TOTAL CARBON DIOXIDE 25.7 MMOL/L (24-32); eGFR 36 ML/MIN
[2018-03-07 11:26] LABS: ALBUMIN/GLOBULIN RATIO 0.5 (1.1-1.5); POTASSIUM 4.6 MMOL/L (3.5-5.1); TOTAL PROTEIN 7.4 G/DL (6.4-8.2)
[2018-03-07 11:28] LABS: CALCIUM 12.4 MG/DL (8.5-10.1)
[2018-03-07] MEDS ORDERED: azithromycin/NS 500mg/250ml 250 ML IV ONE (11:45)
[2018-03-07] MEDS ORDERED: CefTRIAXone 2gm/D5W 50ml 50 ML IV ONE (11:45)
[2018-03-07] MEDS ORDERED: mag hydrox/Alum hydrox/simeth 30ml oral suspension PO PRN (12:15)
[2018-03-07] MEDS ORDERED: magnesium 1gm/100ml D5W IVPB 100 ML IV PRN (12:15)
[2018-03-07] MEDS ORDERED: magnesium 4gm in 100ml NS 100 ML IV PRN (12:15)
[2018-03-07] MEDS ORDERED: potassium Cl 20 mEq SR tablet PO PRN ×2 (12:15)
[2018-03-07] MEDS ORDERED: magnesium Cl slow-release 64mg tablet PO PRN (12:15)
[2018-03-07] MEDS: normal saline 1000ml 1,000 ML IV SCH ×2 (12:15→20:15)
[2018-03-07] MEDS ORDERED: magnesium hydroxide 30ml (MOM) UD suspension PO PRN (12:15)
[2018-03-07] MEDS ORDERED: acetaminophen 325mg tablet PO PRN (12:15)
[2018-03-07] MEDS ORDERED: potassium Cl 40MEQ/NS 500ml 500 ML IV PRN ×2 (12:15)
[2018-03-07] MEDS: levoFLOXACIN-Levaquin 750MG/D5 150 ML IV SCH (12:25)
[2018-03-07] MEDS ORDERED: normal saline 1000ml 1,000 ML IV SCH (12:25)
[2018-03-07 12:51] LABS: ABG BASE EXCESS -1.8 mmol/L (-2.0-3.0); ABG HCO3 23.7 mmol/L (22.0-26.0); ABG OXYGEN SATURATION 95.2 % (95-98); ABG PH (T) 7.359 (7.350-7.450); ABG PO2 (T) 77.6 mmHg (83-108); ALLEN'S TEST Positive; FCOHb 1.4 % (0.5-1.5); FLOW 1 L/min; FO2Hb 93.9 % (94-100); TOTAL HEMOGLOBIN 11.5 G/dl (12.0-16.0)
[2018-03-07] MEDS: metroNIDAZOLE-Flagyl 500mg/NS 100 ML IV SCH (16:00)
[2018-03-07 16:05] VITALS: BP 107/62
[2018-03-07 17:00] VITALS: BP 122/64
[2018-03-07 18:00] VITALS: BP 132/59
[2018-03-07] MEDS: heparin, porcine 5000 units/ml vial SQ SCH (20:13)
[2018-03-07] MEDS: calcitonin,salmon synthetic 200 units/ml inj SQ SCH (20:13)
[2018-03-07 22:00] VITALS: BP 142/62
[2018-03-07] MEDS: baclofen 10mg tablet PO SCH (22:07)
[2018-03-07] MEDS: HYDROcodone/acetaminophen 10/325mg tab PO PRN (22:08)
[2018-03-07 22:21] LABS: CALCIUM 11.2 MG/DL (8.5-10.1)
[2018-03-08] MEDS: metroNIDAZOLE-Flagyl 500mg/NS 100 ML IV SCH ×3 (00:07→15:49)
[2018-03-08 02:00] VITALS: BP 139/70
[2018-03-08] MEDS: normal saline 1000ml 1,000 ML IV SCH ×2 (02:07→12:15)
[2018-03-08 06:10] LABS: ALANINE AMINOTRANSFERASE 146 U/L (12-78); ALBUMIN 2.1 G/DL (3.4-5.0); ALKALINE PHOSPHATASE 332 IU/L (46-116); ANION GAP 11 (8-16); ASPARTATE AMINO TRANSFERASE 259 U/L (10-37); BILIRUBIN,TOTAL 4.5 MG/DL (0.1-1.0); BLOOD UREA NITROGEN 31 MG/DL (7-18); BUN/CREATININE RATIO 35.2 (6.6-38.0); CALCIUM 10.5 MG/DL (8.5-10.1); CHLORIDE 95 MMOL/L (99-107); CREATININE 0.88 MG/DL (0.40-0.90); GLUCOSE 190 MG/DL (70-104); MAGNESIUM 1.4 MG/DL (1.5-2.4); SODIUM 129 MMOL/L (135-145); TOTAL CARBON DIOXIDE 23.4 MMOL/L (24-32); eGFR 65 ML/MIN
[2018-03-08 06:13] LABS: ALBUMIN/GLOBULIN RATIO 0.4 (1.1-1.5); POTASSIUM 4.8 MMOL/L (3.5-5.1); TOTAL PROTEIN 7.5 G/DL (6.4-8.2)
[2018-03-08 06:26] LABS: HEMATOCRIT 30.7 % (35.0-45.0); HEMOGLOBIN 10.2 g/dl (12.0-16.0); MEAN CORPUSCULAR HEMOGLOBIN 24.6 PG (27.0-31.0); MEAN CORPUSCULAR HGB CONC 33.1 % (33.0-36.5); MEAN CORPUSCULAR VOLUME 74.2 FL (78-98); MEAN PLATELET VOLUME 9.2 FL (7.4-10.4); PLATELET COUNT 492 X10'3 (140-440); RED BLOOD COUNT 4.14 X10'6 (4.20-5.60); RED CELL DISTRIBUTION WIDTH 22.5 % (11.5-14.5)
[2018-03-08 07:00] VITALS: BP 136/73
[2018-03-08 07:01] LABS: ANISOCYTOSIS 3+; PLATELET ESTIMATE INCREASED; TOTAL CELLS COUNTED 100
[2018-03-08 07:02] LABS: MICROCYTOSIS 1+
[2018-03-08] MEDS: baclofen 10mg tablet PO SCH (07:02)
[2018-03-08] MEDS: HYDROcodone/acetaminophen 10/325mg tab PO PRN (07:02)
[2018-03-08 07:03] LABS: HYPOCHROMASIA 1+; POLYCHROMASIA 1+; TARGET CELLS 1+
[2018-03-08] MEDS: levoFLOXACIN-Levaquin 750MG/D5 150 ML IV SCH (07:03)
[2018-03-08] MEDS: heparin, porcine 5000 units/ml vial SQ SCH (07:18)
[2018-03-08] MEDS: calcitonin,salmon synthetic 200 units/ml inj SQ SCH (07:19)
[2018-03-08] MEDS ORDERED: K and/or MAG REPLACEMENT MC SCH (08:00)
[2018-03-08] MEDS: HYDROmorphone 1 mg/ml syringe IV PRN ×4 (10:39→21:26)
[2018-03-08 11:00] VITALS: BP 120/57
[2018-03-08 18:00] VITALS: BP 135/84
[2018-03-08 23:00] VITALS: BP 125/57
[2018-03-09] MEDS: metroNIDAZOLE-Flagyl 500mg/NS 100 ML IV SCH ×4 (00:38→23:32)
[2018-03-09] MEDS: HYDROmorphone 1 mg/ml syringe IV PRN ×8 (00:42→23:32)
[2018-03-09 03:00] VITALS: BP 112/57
[2018-03-09 06:00] VITALS: BP 127/61
[2018-03-09 06:08] LABS: HEMATOCRIT 33.4 % (35.0-45.0); HEMOGLOBIN 11.1 g/dl (12.0-16.0); MEAN CORPUSCULAR HEMOGLOBIN 24.8 PG (27.0-31.0); MEAN CORPUSCULAR HGB CONC 33.2 % (33.0-36.5); MEAN CORPUSCULAR VOLUME 74.7 FL (78-98); MEAN PLATELET VOLUME 9.3 FL (7.4-10.4); PLATELET COUNT 464 X10'3 (140-440); RED BLOOD COUNT 4.47 X10'6 (4.20-5.60); RED CELL DISTRIBUTION WIDTH 22.4 % (11.5-14.5); WHITE BLOOD COUNT 15.8 X10'3 (4.5-11.0)
[2018-03-09 06:15] LABS: ALANINE AMINOTRANSFERASE 216 U/L (12-78); ALKALINE PHOSPHATASE 367 IU/L (46-116); ANION GAP 6 (8-16); BILIRUBIN,TOTAL 5.7 MG/DL (0.1-1.0); BLOOD UREA NITROGEN 23 MG/DL (7-18); BUN/CREATININE RATIO 31.9 (6.6-38.0); CALCIUM 10.5 MG/DL (8.5-10.1); CHLORIDE 99 MMOL/L (99-107); CREATININE 0.72 MG/DL (0.40-0.90); GLUCOSE 113 MG/DL (70-104); MAGNESIUM 1.3 MG/DL (1.5-2.4); SODIUM 129 MMOL/L (135-145); TOTAL CARBON DIOXIDE 24.3 MMOL/L (24-32); eGFR 82 ML/MIN
[2018-03-09 06:20] LABS: ALBUMIN/GLOBULIN RATIO 0.4 (1.1-1.5); ASPARTATE AMINO TRANSFERASE 405 U/L (10-37); POTASSIUM 4.3 MMOL/L (3.5-5.1); TOTAL PROTEIN 6.7 G/DL (6.4-8.2)
[2018-03-09 07:09] LABS: ANISOCYTOSIS 3+; HYPOCHROMASIA 1+; PLATELET ESTIMATE INCREASED; TOTAL CELLS COUNTED 100
[2018-03-09 07:10] LABS: POLYCHROMASIA 1+; TARGET CELLS 2+
[2018-03-09] MEDS: levoFLOXACIN-Levaquin 750MG/D5 150 ML IV SCH (07:24)
[2018-03-09] MEDS ORDERED: potassium Cl 20 mEq SR tablet PO PRN ×2 (09:55)
[2018-03-09] MEDS ORDERED: magnesium 4gm in 100ml NS 100 ML IV PRN (09:55)
[2018-03-09] MEDS ORDERED: magnesium 1gm/100ml D5W IVPB 100 ML IV PRN (09:55)
[2018-03-09] MEDS ORDERED: potassium Cl 40MEQ/NS 500ml 500 ML IV PRN ×2 (09:55)
[2018-03-09 10:58] LABS: MAGNESIUM 1.1 MG/DL (1.5-2.4)
[2018-03-09 11:00] VITALS: BP 115/58
[2018-03-09 11:02] LABS: POTASSIUM 4.2 MMOL/L (3.5-5.1)
[2018-03-09] MEDS: magnesium Cl slow-release 64mg tablet PO PRN (11:19)
[2018-03-09] MEDS ORDERED: dextrose ORAL solution 15 GM/59 ML bottle PO PRN ×2 (14:50)
[2018-03-09] MEDS ORDERED: dextrose 50%-water 50ml dispensing syringe IV PRN ×2 (14:50)
[2018-03-09] MEDS ORDERED: insulin regular, human vial - multi-dose SQ SCH (14:50)
[2018-03-09] MEDS ORDERED: insulin Lispro (HumaLOG) vial - multi-dose SQ SCH (14:50)
[2018-03-09] MEDS ORDERED: glucagon, human recombinant 1mg kit SUBCUT PRN (14:50)
[2018-03-09 15:00] VITALS: BP 102/47
[2018-03-09] MEDS: ondansetron/PF 4mg/2ml inj IV PRN (16:46)
[2018-03-09 18:00] VITALS: BP 130/63
[2018-03-09] MEDS: insulin glargine (Lantus) pen - multi-dose SQ SCH (21:00)
[2018-03-09 22:00] VITALS: BP 92/46
[2018-03-10 02:00] VITALS: BP 116/61
[2018-03-10] MEDS: magnesium Cl slow-release 64mg tablet PO PRN (02:55)
[2018-03-10] MEDS: HYDROmorphone 1 mg/ml syringe IV PRN ×6 (02:55→21:05)
[2018-03-10 05:19] LABS: HEMOGLOBIN 10.5 g/dl (12.0-16.0); MEAN CORPUSCULAR HEMOGLOBIN 24.8 PG (27.0-31.0); MEAN CORPUSCULAR HGB CONC 32.9 % (33.0-36.5); MEAN CORPUSCULAR VOLUME 75.5 FL (78-98); MEAN PLATELET VOLUME 8.3 FL (7.4-10.4); PLATELET COUNT 416 X10'3 (140-440); RED BLOOD COUNT 4.24 X10'6 (4.20-5.60); WHITE BLOOD COUNT 14.9 X10'3 (4.5-11.0)
[2018-03-10 05:35] LABS: ANION GAP 7 (8-16); BLOOD UREA NITROGEN 26 MG/DL (7-18); CHLORIDE 94 MMOL/L (99-107); GLUCOSE 110 MG/DL (70-104); SODIUM 126 MMOL/L (135-145); TOTAL CARBON DIOXIDE 25.1 MMOL/L (24-32)
[2018-03-10 05:36] LABS: ALANINE AMINOTRANSFERASE 152 U/L (12-78); ALBUMIN 1.8 G/DL (3.4-5.0); ALKALINE PHOSPHATASE 352 IU/L (46-116); ASPARTATE AMINO TRANSFERASE 160 U/L (10-37); BILIRUBIN,TOTAL 6.2 MG/DL (0.1-1.0); BUN/CREATININE RATIO 28.9 (6.6-38.0); CALCIUM 10.4 MG/DL (8.5-10.1); MAGNESIUM 1.2 MG/DL (1.5-2.4); eGFR 63 ML/MIN
[2018-03-10 05:39] LABS: ALBUMIN/GLOBULIN RATIO 0.4 (1.1-1.5); POTASSIUM 4.6 MMOL/L (3.5-5.1); TOTAL PROTEIN 6.1 G/DL (6.4-8.2)
[2018-03-10 06:00] VITALS: BP 104/61
[2018-03-10 06:33] LABS: ANISOCYTOSIS 3+; HYPOCHROMASIA 1+; PLATELET ESTIMATE NORMAL; TOTAL CELLS COUNTED 100
[2018-03-10 06:34] LABS: POLYCHROMASIA 2+; TARGET CELLS 2+
[2018-03-10] MEDS: metroNIDAZOLE-Flagyl 500mg/NS 100 ML IV SCH ×2 (08:14→17:55)
[2018-03-10] MEDS: levoFLOXACIN-Levaquin 750MG/D5 150 ML IV SCH (09:32)
[2018-03-10 11:00] VITALS: BP 110/48
[2018-03-10 15:00] VITALS: BP 108/55
[2018-03-10 18:00] VITALS: BP 99/70
[2018-03-10] MEDS: insulin glargine (Lantus) pen - multi-dose SQ SCH (21:00)
[2018-03-10 22:00] VITALS: BP 113/53
[2018-03-11] VITALS (7 sets, daily range): BP systolic 87–148; BP diastolic 50–83
[2018-03-11] MEDS: HYDROmorphone 1 mg/ml syringe IV PRN ×3 (00:07→07:21)
[2018-03-11] MEDS: metroNIDAZOLE-Flagyl 500mg/NS 100 ML IV SCH ×2 (00:08→07:26)
[2018-03-11 07:05] LABS: HEMATOCRIT 31.5 % (35.0-45.0); HEMOGLOBIN 10.2 g/dl (12.0-16.0); MEAN CORPUSCULAR HEMOGLOBIN 24.7 PG (27.0-31.0); MEAN CORPUSCULAR HGB CONC 32.4 % (33.0-36.5); MEAN CORPUSCULAR VOLUME 76.3 FL (78-98); MEAN PLATELET VOLUME 9.8 FL (7.4-10.4); PLATELET COUNT 388 X10'3 (140-440); RED BLOOD COUNT 4.13 X10'6 (4.20-5.60); RED CELL DISTRIBUTION WIDTH 20.9 % (11.5-14.5); WHITE BLOOD COUNT 18.5 X10'3 (4.5-11.0)
[2018-03-11 07:09] LABS: ALANINE AMINOTRANSFERASE 102 U/L (12-78); ALBUMIN 1.7 G/DL (3.4-5.0); ALKALINE PHOSPHATASE 347 IU/L (46-116); ANION GAP 8 (8-16); ASPARTATE AMINO TRANSFERASE 95 U/L (10-37); BILIRUBIN,TOTAL 6.9 MG/DL (0.1-1.0); BLOOD UREA NITROGEN 33 MG/DL (7-18); CALCIUM 10.7 MG/DL (8.5-10.1); CHLORIDE 92 MMOL/L (99-107); CREATININE 1.03 MG/DL (0.40-0.90); GLUCOSE 124 MG/DL (70-104); MAGNESIUM 1.4 MG/DL (1.5-2.4); SODIUM 122 MMOL/L (135-145); TOTAL CARBON DIOXIDE 21.6 MMOL/L (24-32); eGFR 54 ML/MIN
[2018-03-11 07:12] LABS: ALBUMIN/GLOBULIN RATIO 0.4 (1.1-1.5)
[2018-03-11 07:23] LABS: PLATELET ESTIMATE NORMAL; TOTAL CELLS COUNTED 100
[2018-03-11 07:24] LABS: ANISOCYTOSIS 3+; HYPOCHROMASIA 1+; LARGE PLATELETS FEW; MICROCYTOSIS 1+; POIKILOCYTOSIS FEW; POLYCHROMASIA 2+; TARGET CELLS 2+
[2018-03-11] MEDS: levoFLOXACIN-Levaquin 750MG/D5 150 ML IV SCH (09:13)
[2018-03-11] MEDS: ondansetron/PF 4mg/2ml inj IV PRN (09:50)
[2018-03-11] MEDS: pantoprazole 40mg Tablet.DR PO SCH (11:37)
[2018-03-11] MEDS: HYDROcodone/acetaminophen 10/325mg tab PO PRN ×2 (12:47→19:46)
[2018-03-11] MEDS: insulin glargine (Lantus) pen - multi-dose SQ SCH (21:00)
[2018-03-11] MEDS: temazepam 15mg capsule PO PRN (21:34)
[2018-03-12] MEDS: HYDROcodone/acetaminophen 10/325mg tab PO PRN ×4 (00:26→18:06)
[2018-03-12 05:55] LABS: HEMATOCRIT 31.8 % (35.0-45.0); HEMOGLOBIN 10.4 g/dl (12.0-16.0); MEAN CORPUSCULAR HEMOGLOBIN 25.1 PG (27.0-31.0); MEAN CORPUSCULAR HGB CONC 32.9 % (33.0-36.5); MEAN CORPUSCULAR VOLUME 76.5 FL (78-98); MEAN PLATELET VOLUME 9.8 FL (7.4-10.4); PLATELET COUNT 406 X10'3 (140-440); RED BLOOD COUNT 4.16 X10'6 (4.20-5.60); RED CELL DISTRIBUTION WIDTH 20.4 % (11.5-14.5); WHITE BLOOD COUNT 21.6 X10'3 (4.5-11.0)
[2018-03-12 06:28] LABS: ANISOCYTOSIS 2+; HYPOCHROMASIA 1+; PLATELET ESTIMATE NORMAL; POIKILOCYTOSIS FEW; POLYCHROMASIA 1+; TARGET CELLS 2+; TOTAL CELLS COUNTED 100
[2018-03-12 06:52] LABS: ALANINE AMINOTRANSFERASE 71 U/L (12-78); ALBUMIN 1.5 G/DL (3.4-5.0); ALKALINE PHOSPHATASE 341 IU/L (46-116); ANION GAP 10 (8-16); ASPARTATE AMINO TRANSFERASE 70 U/L (10-37); BILIRUBIN,TOTAL 6.9 MG/DL (0.1-1.0); BLOOD UREA NITROGEN 39 MG/DL (7-18); BUN/CREATININE RATIO 34.5 (6.6-38.0); CALCIUM 11.1 MG/DL (8.5-10.1); CHLORIDE 92 MMOL/L (99-107); CREATININE 1.13 MG/DL (0.40-0.90); GLUCOSE 126 MG/DL (70-104); MAGNESIUM 1.3 MG/DL (1.5-2.4); SODIUM 122 MMOL/L (135-145); TOTAL CARBON DIOXIDE 19.9 MMOL/L (24-32); eGFR 49 ML/MIN
[2018-03-12 06:55] LABS: ALBUMIN/GLOBULIN RATIO 0.4 (1.1-1.5); POTASSIUM 5.3 MMOL/L (3.5-5.1); TOTAL PROTEIN 5.7 G/DL (6.4-8.2)
[2018-03-12 07:00] VITALS: BP 79/46
[2018-03-12] MEDS: pantoprazole 40mg Tablet.DR PO SCH (07:32)
[2018-03-12] MEDS: magnesium Cl slow-release 64mg tablet PO SCH ×2 (09:40→20:00)
[2018-03-12 18:00] VITALS: BP 97/43
[2018-03-12 19:00] VITALS: BP 97/43
[2018-03-12] MEDS: insulin glargine (Lantus) pen - multi-dose SQ SCH (21:00)
[2018-03-12] MEDS: temazepam 15mg capsule PO PRN (21:13)
[2018-03-13] MEDS: HYDROcodone/acetaminophen 10/325mg tab PO PRN ×4 (02:10→16:13)
[2018-03-13 06:11] LABS: HEMATOCRIT 31.5 % (35.0-45.0); HEMOGLOBIN 10.2 g/dl (12.0-16.0); MEAN CORPUSCULAR HEMOGLOBIN 25.5 PG (27.0-31.0); MEAN CORPUSCULAR HGB CONC 32.5 % (33.0-36.5); MEAN CORPUSCULAR VOLUME 78.4 FL (78-98); MEAN PLATELET VOLUME 9.7 FL (7.4-10.4); PLATELET COUNT 391 X10'3 (140-440); RED BLOOD COUNT 4.02 X10'6 (4.20-5.60); WHITE BLOOD COUNT 21.2 X10'3 (4.5-11.0)
[2018-03-13 06:28] LABS: ANISOCYTOSIS 2+; HYPOCHROMASIA 1+; NUCLEATED RED BLOOD CELLS 1 /100WBC (0-0); PLATELET ESTIMATE NORMAL; POLYCHROMASIA 1+; TOTAL CELLS COUNTED 100
[2018-03-13 06:29] LABS: TARGET CELLS 1+
[2018-03-13 06:36] LABS: ALANINE AMINOTRANSFERASE 59 U/L (12-78); ALBUMIN 1.6 G/DL (3.4-5.0); ALKALINE PHOSPHATASE 317 IU/L (46-116); ANION GAP 14 (8-16); ASPARTATE AMINO TRANSFERASE 81 U/L (10-37); BILIRUBIN,TOTAL 7.3 MG/DL (0.1-1.0); BLOOD UREA NITROGEN 45 MG/DL (7-18); BUN/CREATININE RATIO 38.8 (6.6-38.0); CHLORIDE 89 MMOL/L (99-107); CREATININE 1.16 MG/DL (0.40-0.90); GLUCOSE 105 MG/DL (70-104); MAGNESIUM 1.5 MG/DL (1.5-2.4); SODIUM 121 MMOL/L (135-145); TOTAL CARBON DIOXIDE 17.9 MMOL/L (24-32); eGFR 47 ML/MIN
[2018-03-13 06:37] LABS: POTASSIUM 5.4 MMOL/L (3.5-5.1); TOTAL PROTEIN 5.8 G/DL (6.4-8.2)
[2018-03-13 06:38] LABS: ALBUMIN/GLOBULIN RATIO 0.4 (1.1-1.5)
[2018-03-13 07:00] VITALS: BP 88/46
[2018-03-13] MEDS: levoTHYROXINE 25mcg tablet PO SCH (07:00)
[2018-03-13] MEDS: magnesium Cl slow-release 64mg tablet PO SCH ×2 (07:10→20:00)
[2018-03-13] MEDS: pantoprazole 40mg Tablet.DR PO SCH (07:10)
[2018-03-13 11:00] VITALS: BP 98/56
[2018-03-13] MEDS: insulin glargine (Lantus) pen - multi-dose SQ SCH (21:00)
[2018-03-13] MEDS: oxyCODONE/APAP 5-325mg tablet PO PRN (21:11)
[2018-03-13] MEDS: temazepam 15mg capsule PO PRN (22:44)
[2018-03-14 02:46] VITALS: BP 92/59
[2018-03-14] MEDS: oxyCODONE/APAP 5-325mg tablet PO PRN ×5 (03:41→22:57)
[2018-03-14] MEDS: levoTHYROXINE 25mcg tablet PO SCH ×2 (06:08→07:00)
[2018-03-14 07:00] VITALS: BP 83/46
[2018-03-14] MEDS: pantoprazole 40mg Tablet.DR PO SCH (07:53)
[2018-03-14] MEDS: magnesium Cl slow-release 64mg tablet PO SCH ×2 (07:53→20:00)
[2018-03-14 11:00] VITALS: BP 100/46
[2018-03-14 19:00] VITALS: BP 81/50
[2018-03-14] MEDS ORDERED: diphenhydrAMINE 25mg capsule PO PRN (20:30)
[2018-03-14] MEDS: insulin glargine (Lantus) pen - multi-dose SQ SCH (21:00)
[2018-03-15] MEDS: temazepam 15mg capsule PO PRN (00:06)
[2018-03-15] MEDS: oxyCODONE/APAP 5-325mg tablet PO PRN ×3 (05:08→14:01)
[2018-03-15] MEDS: magnesium Cl slow-release 64mg tablet PO SCH (07:38)
[2018-03-15] MEDS: pantoprazole 40mg Tablet.DR PO SCH (07:38)
[2018-03-15] MEDS: levoTHYROXINE 25mcg tablet PO SCH (07:41)
[2018-03-15 11:00] VITALS: BP 72/46
== END 2018-03-15 15:10 | disposition hospice, home (50) | DRG 720 ==
LOC: ER 10:26 → ED HOLD 12:15 → EDBEDREQ 13:13 → S STAY 15:13 → PCU 3S 16:50
PROVIDERS: ADMIT Internal Medicine; ATTEND Family Medicine
DX: A41.9 Sepsis, unspecified organism (principal); J96.20 Acute and chronic respiratory failure, unspecified whether with hypoxia or hypercapnia; E43 Unspecified severe protein-calorie malnutrition; N17.9 Acute kidney failure, unspecified; J18.1 Lobar pneumonia, unspecified organism; C79.89 Secondary malignant neoplasm of other specified sites; M84.40XA Pathological fracture, unspecified site, initial encounter for fracture; J18.9 Pneumonia, unspecified organism; E83.42 Hypomagnesemia; E83.52 Hypercalcemia; C34.90 Malignant neoplasm of unspecified part of unspecified bronchus or lung; C34.91 Malignant neoplasm of unspecified part of right bronchus or lung; J44.1 Chronic obstructive pulmonary disease with (acute) exacerbation; B17.9 Acute viral hepatitis, unspecified; E03.9 Hypothyroidism, unspecified; D64.9 Anemia, unspecified; E83.51 Hypocalcemia; E87.1 Hypo-osmolality and hyponatremia; E87.5 Hyperkalemia; G47.00 Insomnia, unspecified; J44.0 Chronic obstructive pulmonary disease with (acute) lower respiratory infection; J98.11 Atelectasis; K29.70 Gastritis, unspecified, without bleeding; M84.474A Pathological fracture, right foot, initial encounter for fracture; N18.9 Chronic kidney disease, unspecified; Z51.5 Encounter for palliative care; Z66 Do not resuscitate; Z86.711 Personal history of pulmonary embolism; Z90.710 Acquired absence of both cervix and uterus; Z99.81 Dependence on supplemental oxygen; Z68.31 Body mass index [BMI] 31.0-31.9, adult
CPT/HCPCS: 36415; 36600; 71045; 71250; 73060; 73630; 74176; 78582; 80053; 82310; 82803; 82948; 83735; 83880; 84132; 84145; 84443; 84484; 85018; 85025; 85379; 87040; 87070; 87077; 87186; 93005; 93970; 96365; 96375; 97161; 97530; 99285; A4315; A6213; A6250; A6449; A9539; A9540; J0456; J0630; J0696; J1170; J1644; J1815; J1956; J2405; J2930; J3490; J7030; Q0163